=== PATIENT | male | born 1985 | race Caucasian/White ===

== ENCOUNTER 2021-10-26 20:16 | Emergency (ER) | payer SELFPAY ==
[~2021-10-26] VITALS: Ht 167.6 cm; Wt 65.0 kg
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
[2021-10-26 21:03] LABS: BASO # 0.1 x10^3/uL (0.0-0.2); BASO % 1 % (0-3); EOS # 0.4 x10^3/uL (0.0-0.7); EOS % 6 % (0-3); HEMATOCRIT 42.9 % (39.0-53.0); LYMPH # 1.9 x10^3/uL (1.0-4.8); LYMPH % 29 % (24-48); MEAN CORPUSCULAR HEMOGLOBIN 28 pg (25-35); MEAN CORPUSCULAR HGB CONC 33 g/dL (31-37); MEAN CORPUSCULAR VOLUME 84 fL (79-100); MONO # 0.7 x10^3/uL (0.0-1.1); MONO % 10 % (0-9); NEUT # 3.6 x10^3/uL (1.8-7.7); NEUT % 54 % (31-73); PLATELET COUNT 335 x10^3/uL (140-400); RED BLOOD COUNT 5.09 x10^6/uL (4.30-5.70); RED CELL DISTRIBUTION WIDTH 14.3 % (11.5-14.5); WHITE BLOOD COUNT 6.6 x10^3/uL (4.0-11.0)
[2021-10-26 21:15] LABS: BACTERIA,URINE 0 /HPF (0-FEW); CALCIUM 8.7 mg/dL (8.5-10.1); GFR 84.5; POTASSIUM 4.1 mmol/L (3.5-5.1); RBC,URINE OCC /HPF (0-2); WBC,URINE 0 /HPF (0-4)
[2021-10-26 21:17] LABS: AMPHETAMINE/METHAMPHETAMINE NEG (NEG); BARBITURATES NEG (NEG); BENZODIAZEPINES NEG (NEG); CANNABINOIDS NEG (NEG); COCAINE NEG (NEG); METHADONE NEG (NEG); OPIATES NEG (NEG); PHENCYCLIDINE NEG (NEG)
[2021-10-26 21:32] LABS: ACETAMIN < 2 mcg/ml (10-30); SALIC 1.9 mg/dL (2.8-20.0)
[2021-10-26 23:00] VITALS: BP 108/58
== END 2021-10-26 23:13 | disposition home or self-care (01) ==
LOC: ER 20:16
DX: R45.851 Suicidal ideations (principal); Z20.822 Contact with and (suspected) exposure to COVID-19; F19.10 Other psychoactive substance abuse, uncomplicated; F25.0 Schizoaffective disorder, bipolar type; Z59.00 Homelessness unspecified
CPT/HCPCS: 36415; 80048; 80307; 80329; 81001; 85025; 87426; 99285-25; G0480

== ENCOUNTER 2021-11-28 04:13 | Emergency (ER) | payer SELFPAY ==
[~2021-11-28] VITALS: Ht 167.6 cm; Wt 65.0 kg
--- NOTE | 2021-11-28 06:01 | PHYS DOC ---
Past Medical History Past Surgical History: No Surgical History Smoking Status: Current Every Day Smoker Alcohol Use: Heavy Adult General Chief Complaint Chief Complaint: COLD EXPOSURE HPI HPI Patient is a 36 year old male who presents requesting placement. Currently homeless. Patient has history of alcohol and methamphetamine abuse. Today, he states he is hearing voices and is requesting to be admitted to a hospital. Denies plan for suicide. Presents to this ER with wristband from other hospitals present. Does not give additional history. Currently homeless and stays in [place]. Had been seen in this ER 1 month earlier for similar presentation when he was not thought appropriate for psychiatric admission. Denies pain or any medical complaints today. Review of Systems Review of Systems Constitutional: Denies fever or chills Eyes: Denies change in visual acuity HENT: Denies nasal congestion or sore throat Respiratory: Denies cough or shortness of breath Cardiovascular: No additional information not addressed in HPI GI: Denies abdominal pain, nausea Musculoskeletal: Denies back pain Integument: Denies rash or skin lesions Neurologic: Denies headache Endocrine: Denies Psych: hearing voices. No plan for suicide All other systems were reviewed and found to be within normal limits, except as documented in this note. Allergies Allergies Allergies Coded Allergies Type Severity Reaction Last Updated Verified No Known Drug Allergies 10/26/21 No Physical Exam Physical Exam Constitutional: Well developed male. Disheveled HENT: Normocephalic, atraumatic, bilateral external ears normal, oropharynx moist Eyes: PERRLA, EOMI, conjunctiva normal Neck: Normal range of motion Cardiovascular:Heart rate regular rhythm, no murmur Lungs & Thorax: Bilateral breath sounds clear Skin: Warm, dry, no erythema, no rash Back: Normal ROM Extremities: No tenderness, no cyanosis, no clubbing, ROM intact, no edema Neurologic: Alert and oriented X 3 Psychologic: Sleepy but does arouse to answer some questions. States he is hearing voices. No plan for suicide. Current Patient Data Vital Signs Vital Signs Date Time Temp Pulse Resp B/P (MAP) Pulse Ox O2 Delivery O2 Flow Rate FiO2 11/28/21 10:03 82 16 104/76 (85) 95 Room Air 11/28/21 04:15 97.0 97.0 EKG EKG [] Radiology/Procedures Radiology/Procedures [] Course & Med Decision Making Course & Med Decision Making Pertinent Labs and Imaging studies reviewed. (See chart for details) 06:30: seen and examined. technical services consultant at bedside evaluating. No medical complaints today. 10:50: Patient has been observed in the ER for over 5 hours. He has been sleeping. He was given breakfast. He was evaluated by psychiatric assessment team and deemed safe for discharge home. Consideration was initially given to refer him to [facility] but patient cannot go there due to prior behavioral problems at that facility. Ultimately, he denies feeling suicidal and is stable for discharge from the ER today. Dragon Disclaimer Dragon Disclaimer This electronic medical record was generated, in whole or in part, using a voice recognition dictation system. Departure Departure Impression: Primary Impression: Homelessness Additional Impression: Hallucinations, unspecified Disposition: 01 HOME / SELF CARE / HOMELESS Condition: IMPROVED Referrals: NO PCP (PCP) Patient Instructions: Hallucinations and Delusions Problem Qualifiers CLOVER WALTON DO Nov 28, 2021 06:00
[2021-11-28 10:03] VITALS: BP 104/76
== END 2021-11-28 11:11 | disposition home or self-care (01) ==
LOC: ER 04:13
DX: R44.3 Hallucinations, unspecified (principal); Z59.00 Homelessness unspecified; F17.200 Nicotine dependence, unspecified, uncomplicated; F10.20 Alcohol dependence, uncomplicated; Y90.9 Presence of alcohol in blood, level not specified
CPT/HCPCS: 99281